=== PATIENT | male | born 1940 | race Caucasian/White ===

== ENCOUNTER → 2016-09-07 | Outpatient (CLI) | payer MEDICARE, OTHER | END | disposition home or self-care (01) | LOC: GMAB 10:30 | PROVIDERS: ATTEND Family Medicine | DX: E29.1 Testicular hypofunction (principal); Z12.5 Encounter for screening for malignant neoplasm of prostate | CPT/HCPCS: 84403; 84443; G0103 ==

== ENCOUNTER → 2016-09-14 | Outpatient (CLI) | payer MEDICARE, OTHER ==
--- NOTE | 2016-09-14 13:05 | MRI ---
EXAM DESCRIPTION: Lumbar Spine w/o Contrast CLINICAL HISTORY: SCIATICA back pain radiating into the right hip with inability to walk COMPARISON: None Available. TECHNIQUE: MRI of the lumbar spine is performed according to our usual protocol with axial and sagittal multi sequence imaging. FINDINGS: MR the lumbar spine demonstrates diffuse disc desiccation with sparing of the L1-2 disc space with grade 2 spondylolisthesis at L5-S1 with bilateral L5 pars defects and significant distortion of the thecal sac and neural foramina at L5. There is retroperitoneal and paraspinous regions visualized are unremarkable. Tiny amount of curvature of the spine convex to the right centered at L3 is evident. No intradural or intramedullary abnormalities are noted in the conus is positioned at the T12-L1 level. L1-2: the disc is well hydrated. There is no loss of height. There is no bulging. The facets are unremarkable with no significant hypertrophy. There is no stenosis or impingement. L2-3: Broad-based annular bulge with mild facet arthropathy and ligamentum flavum hypertrophy with thecal sac in the lower range of normal with mild narrowing of both L2 neural foramina. L3-4: Disc desiccation and annular bulge, minimally more prominent to the left of midline with compromise of the left lateral recess and inferior left L3 neural foramen to a greater degree than the right side. No severe central stenosis. L4-5: Disc desiccation with essentially normal disc contour with mild facet arthropathy and adequate canal and foramina. L5-S1: Disc degeneration and narrowing with grade 2 spondylolisthesis L5 on S1 with elongation of the central canal and marked distortion and narrowing of each L5 neural foramen without central stenosis. Bilateral L5 pars defects are evident on sagittal imaging. IMPRESSION: 1. Disc degeneration, annular bulge, and grade 2 spondylolisthesis L5 on S1 with bilateral L5 pars defects and distorted elongated spinal canal and significantly narrowed bilateral L5 neural foramina. 2. Annular bulge and facet arthropathy with mild left-sided prominence L3-4 with thecal sac in the lower range of normal. Mild asymmetric left-sided neural compression suspected 3. Modest annular bulge and mild facet arthropathy with borderline central stenosis L2-3 without lateralizing change. Electronically signed by: Paul Leyva MD 09/14/2016 1:04 PM CDT
== END | disposition home or self-care (01) ==
LOC: MRI 08:00
PROVIDERS: ATTEND Family Medicine
DX: M54.30 Sciatica, unspecified side (principal)

== ENCOUNTER → 2017-09-11 | Outpatient (CLI) | payer MEDICARE, OTHER ==
--- NOTE | 2017-09-11 13:51 | US ---
EXAM DESCRIPTION: Carotid Duplex: ULTRASOUND. CLINICAL HISTORY: OCCLUSION AND STENOSIS OF BILATERAL CAROTID ARTERIES COMPARISON: MRI scan of the brain 07/30/2015. TECHNIQUE: Transcutaneous scanning utilizing freitas-scale and Doppler modes to evaluate the bilateral carotid systems and vertebral arteries. Percentage of diameter of stenosis or no stenosis recorded will be based upon NASCET criteria. FINDINGS: Peak systolic/end diastolic (CM-Sec) CCA Right 87/0 Left 144/16. ICA Right proximal 43/13, mid 63/16. Left proximal 90/22, mid 98/21. Vertebral Right 47/12 Left 49/11. ECA (PS Only) Right 87 left 106. ICA/CCA peak systolic ratio: Right 0.7 Left 0.7 ICA/CCA end diastolic ratio: Right n/a Left 1.3 Vertebral arteries: antegrade flow. Comments: Atherosclerotic plaque in the bilateral distal common carotid arteries, common carotid bulbs, and proximal ICAs. Spectral broadening in the bilateral proximal ICAs. Area stenosis in the left common carotid bulb is 9%; diameter stenosis 16%. IMPRESSION: 1. Doppler evaluation of the bilateral carotid systems and vertebral arteries shows no hemodynamically significant stenoses. 2. No significant amount of plaque seen in the carotid arteries bilaterally. Bilateral vertebral arteries showed antegrade-cephalad flow. Electronically signed by: Grayson Morris MD 09/11/2017 1:50 PM CDT
== END ==
LOC: US 10:00
PROVIDERS: ATTEND Family Medicine
DX: I65.23 Occlusion and stenosis of bilateral carotid arteries (principal)

== ENCOUNTER → 2017-12-20 | Outpatient (CLI) | payer MEDICARE, OTHER | LOC: GMATM 17:44 | PROVIDERS: ATTEND Nurse Practitioner Family | DX: E29.1 Testicular hypofunction (principal) ==

== ENCOUNTER → 2018-05-30 | Outpatient (CLI) | payer MEDICARE, OTHER | LOC: GMATM 16:52 | PROVIDERS: ATTEND Nurse Practitioner Family | DX: E29.1 Testicular hypofunction (principal); N40.1 Benign prostatic hyperplasia with lower urinary tract symptoms ==

== ENCOUNTER → 2018-06-22 | Outpatient (CLI) | payer MEDICARE, OTHER | LOC: GMAE 11:25 | PROVIDERS: ATTEND Family Medicine | DX: E29.1 Testicular hypofunction (principal) ==

== ENCOUNTER → 2018-07-03 | Outpatient (CLI) | payer MEDICARE, OTHER | LOC: GMAE 14:45 | PROVIDERS: ATTEND Family Medicine | DX: E29.1 Testicular hypofunction (principal) ==

== ENCOUNTER → 2018-09-06 | Outpatient (CLI) | payer MEDICARE, OTHER | LOC: GMAE 10:31 | PROVIDERS: ATTEND Family Medicine | DX: E29.1 Testicular hypofunction (principal); R10.84 Generalized abdominal pain ==

== ENCOUNTER → 2018-12-11 | Outpatient (CLI) | payer MEDICARE, OTHER | LOC: GMATM 19:13 | PROVIDERS: ATTEND Nurse Practitioner Family | DX: F52.21 Male erectile disorder (principal) ==

== ENCOUNTER → 2019-05-14 | Outpatient (CLI) | payer MEDICARE, OTHER ==
--- NOTE | 2019-05-16 07:11 | US ---
EXAM DESCRIPTION: Aorta: Ultrasound. CLINICAL HISTORY: abdominal aortic aneurysm without rupture COMPARISON: MRI lumbar spine August 2016 TECHNIQUE: Transcutaneous scanning: Two-dimensional and Doppler modes. FINDINGS: Abdominal aorta diameter - Proximal: 2.5 x 2.1 cm. Mid: 1.8 x 1.7 cm. Distal: 1.8 x 1.8 cm. Common Iliac diameter - Right: 12 mm. Left: 10 mm. Other: Minimal plaque.. IMPRESSION: No abdominal aortic aneurysm. Electronically signed by: Grayson Morris MD 05/16/2019 7:09 AM [facility]
== END ==
LOC: US 08:30
PROVIDERS: ATTEND Family Medicine
DX: I71.4 Abdominal aortic aneurysm, without rupture (principal)

== ENCOUNTER → 2020-04-17 | Outpatient (CLI) | payer MEDICARE, OTHER ==
--- NOTE | 2020-04-20 11:44 | RAD ---
EXAM DESCRIPTION: Hand,Left 3 Views CLINICAL HISTORY: 80 years Male, pain in left hand COMPARISON: None. Findings: 3 view(s)/radiograph(s) Moderate first CMC osteoarthritis. Osteopenia. Punctate radiopaque density in the thumb adjacent the distal phalanx. Moderate scattered osteoarthritis of the IP joints. No acute fracture or dislocation. No focal soft tissue swelling. No osseous erosion. IMPRESSION: Osteoarthritis of the left hand. Electronically signed by: Benny Landrum MD 04/20/2020 11:43 AM [facility]
--- NOTE | 2020-04-20 11:47 | RAD ---
EXAM DESCRIPTION: Hand,Right 3 Views CLINICAL HISTORY: pain in right hand COMPARISON: None. TECHNIQUE: 3 views right FINDINGS: Distal interphalangeal joint arthritis is observed throughout the hand. Mild degenerative changes are observed in the metacarpal phalangeal joint of the first digit and the third digit. No fracture is detected. IMPRESSION: Degenerative changes are observed most pronounced in the distal interphalangeal joints. Electronically signed by: Sherwin Reyes MD 04/20/2020 11:46 AM [facility]
== END ==
LOC: RAD 09:16
PROVIDERS: ATTEND Orthopaedic Surgery
DX: M19.041 Primary osteoarthritis, right hand (principal); M19.042 Primary osteoarthritis, left hand

== ENCOUNTER 2020-04-29 05:29 | Day surgery (SDC) | payer MEDICARE, OTHER ==
[2020-04-29] MEDS ORDERED: LACTATED RINGERS 1,000 ML ONE (06:41)
[2020-04-29] MEDS ORDERED: ceFAZolin SODIUM 1 GM VIAL ONE ×2 (06:41→08:06)
[2020-04-29] MEDS ORDERED: SODIUM CHL 0.9% 100ML MINI-BAG 100 ML IVPB ONE (06:41)
[2020-04-29] MEDS ORDERED: PROPOFOL 200 MG/20 ML VIAL IV ONE (07:00)
[2020-04-29] MEDS ORDERED: LIDOCAINE 1% 10 ML VIAL INJ ONE ×2 (08:05→10:25)
[2020-04-29] MEDS ORDERED: methylPREDNISolone ACETATE 80 MG/ML VIAL ONE (08:06)
[2020-04-29] MEDS ORDERED: BUPIVACAINE 0.25% INJ 30 ML VIAL INJ ONE ×2 (08:06→10:25)
[2020-04-29] MEDS ORDERED: VANCOMYCIN HCL INJ 1,000 MG VIAL IVPB ONE ×2 (08:06→10:25)
[2020-04-29] MEDS ORDERED: LACTATED RINGERS 1,000 ML IVS ONE (09:12)
[2020-04-29] MEDS ORDERED: MIDAZOLAM INJ 2 MG/2 ML VIAL ONE (10:18)
[2020-04-29] MEDS ORDERED: fentaNYL CITRATE INJ 50 MCG/ML 2 ML AMP ONE (10:19)
[2020-04-29] MEDS ORDERED: ceFAZolin SODIUM 1 GM VIAL IRRIG ONE (10:25)
[2020-04-29 11:34] VITALS: TEMP 97.3; O2SAT 92
[2020-04-29 11:59] VITALS: BP 111/59
--- NOTE | 2020-04-30 10:04 | OP ---
DATE OF PROCEDURE: 04/29/20 PREOPERATIVE DIAGNOSIS: 1. Right third digit triggering. 2. Left fourth digit triggering. 3. Left thumb first carpometacarpal arthritis. POSTOPERATIVE DIAGNOSIS: 1. Right third digit triggering. 2. Left fourth digit triggering. 3. Left thumb first carpometacarpal arthritis. PROCEDURE: 1. Right third trigger finger release. 2. Left fourth trigger finger release. 3. Left thumb first carpometacarpal injection. SURGEON: Humberto Barber MD. WRAPPER STITCHER: Grayson Grimaldo CST, SA-C. ANESTHESIA: Local with sedation. COMPLICATIONS: None. FINDINGS: 1. Triggering at the A1 sharon of the right third digit and left fourth digit. 2. Osteoarthritis with crepitus and other findings consistent with osteoarthritis of the first CMC joint. INDICATION: Mr. Nelson has a history of triggering at the right third and left fourth digits that has been associated with pain. He has requested operative intervention. He additionally requested injection under anesthesia for the first CMC arthritis. After discussing the risks, benefits and alternatives to that, the patient has given informed consent. PROCEDURE: The patient was brought to the Operating Room and placed in the supine position. Sedation was administered and local anesthetic was injected into the operative area. Following injection, the arm was sterilely prepped and draped. A transverse incision was made directly overlying the A1 sharon of the right third triggering digit and blunt dissection was carried down to the sharon while protecting the digital nerves. After identification of the sharon, the sharon was transected and a Brownfield elevator was passed both proximally and distally to ensure complete release. The finger was flexed and extended and there was no evidence of locking or clicking. The wound was thoroughly irrigated and closed with Nylon suture. Attention was then focused on the left fourth digit. An incision was made directly overlying the fourth A1 sharon and blunt dissection was carried down to the sharon and sharply incised longitudinally. A Brownfield elevator was passed both proximally and distally to ensure complete release. The finger was flexed and extended and there was no evidence of any type of clicking or locking. The wound was thoroughly irrigated and closed with Nylon suture. Attention was then focused on the first carpometacarpal joint on the left. Using a combination of Marcaine, lidocaine and Depo-Medrol, a sterile injection was performed of the first CMC joint. Dressings were placed on all the wounds and he was then taken back to the Day Surgery Unit. POSTOPERATIVE PLAN: The patient will be doing range of motion of the digits and will followup with us in two days. #[id number] [facility]
== END 2020-04-29 12:00 | disposition home or self-care (01) ==
LOC: AMB 05:29
PROVIDERS: ATTEND Orthopaedic Surgery
DX: M65.331 Trigger finger, right middle finger (principal); M65.342 Trigger finger, left ring finger; M18.12 Unilateral primary osteoarthritis of first carpometacarpal joint, left hand; Z88.5 Allergy status to narcotic agent
CPT/HCPCS: 01810; 20600; 26055; 80307; 87070; J0690; J1030; J2250; J3010; J3370; J3490; J7050; J7120